=== PATIENT | female | born 1970 ===

== ENCOUNTER 2017-04-04 08:17 | Emergency (ER) | payer MEDICAID ==
[2017-04-04] MEDS ORDERED: Sodium Chloride 0.9% 1,000 ML IV ONE (09:06)
[2017-04-04 09:30] LABS: BASO % 0.6 % (0.0-2.0); EOS # 0.1 K/uL (0.0-0.7); LYMPH # 2.4 K/uL (1.0-4.3); LYMPH % 30.3 % (20.0-40.0); MEAN CELL VOLUME 95.8 fL (81.0-99.0); MEAN CORPUSCULAR HEMOGLOBIN 33.3 pg (27.0-31.0); MEAN CORPUSCULAR HGB CONC 34.8 g/dL (33.0-37.0); MEAN PLATELET VOLUME 7.3 fL (7.2-11.7); MONO # 0.5 K/uL (0.0-0.8); MONO % 6.4 % (0.0-10.0); NEUT # 4.8 K/uL (1.8-7.0); NEUT % 61.7 % (50.0-75.0); NRBC % 0.1 % (0.0-2.0); RBC 3.99 Mil/uL (3.80-5.20); RED CELL DISTRIBUTION WIDTH 13.4 % (11.5-14.5); WHITE BLOOD COUNT 7.8 K/uL (4.8-10.8)
[2017-04-04 09:33] LABS: HEMOGLOBIN 13.3 g/dL (11.0-16.0)
[2017-04-04 09:38] LABS: HCG,QUALITATIVE URINE NEGATIVE (NEGATIVE)
[2017-04-04 09:43] LABS: SQUAMOUS EPITHIAL 1 /hpf (0-5); URINE BILIRUBIN NEGATIVE (NEGATIVE); URINE BLOOD 1+ (NEGATIVE); URINE CLARITY Clear (Clear); URINE COLOR Yellow (YELLOW); URINE GLUCOSE (UA) NORMAL (Normal); URINE LEUKOCYTE ESTERASE NEG Leu/uL (Negative); URINE NITRATE NEGATIVE (NEGATIVE); URINE PROTEIN NEGATIVE (NEGATIVE); URINE UROBILINOGEN NORMAL mg/dL (0.2-1.0)
[2017-04-04 09:46] LABS: ALBUMIN 3.9 g/dL (3.5-5.0); ALT/SGPT 14 U/L (9-52); AST/SGOT 18 U/L (14-36); BLOOD UREA NITROGEN 15 mg/dL (7-17); CALCIUM 8.6 mg/dl (8.6-10.4); GFR AFRICAN-AMERICAN > 60; GFR NON-AFRICAN AMERICAN > 60
--- NOTE | 2017-04-04 09:55 | C.PDOC ---
History Of Present Illness 47-year-old female, presents to the emergency department with complaints of abdominal pain that started 1.5 days ago. Patient states she has been experiencing nausea and sometimes feels dizzy. Patient denies any other complaints at this time. Patient has history of ovarian cyst and thinks that she has another ovarian cyst Time Seen by Provider: 04/04/17 08:43 Chief Complaint (Nursing): Abdominal Pain History Per: Patient History/Exam Limitations: no limitations Onset/Duration Of Symptoms: Days Location Of Pain/Discomfort: Suprapubic Quality Of Discomfort: Aching, Cramping Alleviating Factors: None Recent travel outside of the [place]: No Abnormal Vaginal Bleeding: No Past Medical History Reviewed: Historical Data, Nursing Documentation, Vital Signs Vital Signs: Last Vital Signs Temp 98.4 F 04/04/17 14:17 Pulse 77 04/04/17 14:17 Resp 16 04/04/17 14:17 BP 110/64 04/04/17 14:17 Pulse Ox 98 04/04/17 14:17 - Medical History PMH: No Chronic Diseases Denies: Chronic Kidney Disease Other PMH: ovarian cyst Surgical History: No Surg Hx Family History: States: No Known Family Hx - Social History Hx Tobacco Use: No Hx Alcohol Use: No Hx Substance Use: No - Immunization History Hx Tetanus Toxoid Vaccination: No Hx Influenza Vaccination: No Hx Pneumococcal Vaccination: No Review Of Systems Constitutional: Negative for: Fever Respiratory: Negative for: Shortness of Breath Gastrointestinal: Positive for: Nausea, Abdominal Pain. Negative for: Vomiting Genitourinary: Negative for: Vaginal Bleeding Neurological: Positive for: Dizziness Physical Exam - Physical Exam Appears: Non-toxic, No Acute Distress Skin: Normal Color, Warm, Dry, No Rash Head: Normacephalic Throat: Normal Neck: Normal ROM Cardiovascular: Rhythm Regular, No Murmur Respiratory: Normal Breath Sounds, No Accessory Muscle Use Gastrointestinal/Abdominal: Soft, Tenderness (Ovarian cyst, suprapubic tenderness.) Extremity: Normal ROM, No Deformity, No Swelling Neurological/Psych: Oriented x3, Normal Speech ED Course And Treatment - Laboratory Results Result Diagrams: 04/04/17 09:23 04/04/17 09:23 Lab Interpretation: Normal Urine POC: Negative O2 Sat by Pulse Oximetry: 100 (RA) Pulse Ox Interpretation: Normal - CT Scan/US No standard instances Other Rad Studies (CT/US): Read By Radiologist, Radiology Report Reviewed CT/US Interpretation: FINDINGS: UTERUS: Measures 9.3 x 3.7 x 5.1 cm. Anteverted. Heterogeneous uterine echotexture limits evaluation for small masses or fibroids. 0.3 x 0.2 x 0.3 cm anechoic avascular focus, likely cyst within the mid left uterus. ENDOMETRIUM: Measures 6 mm in diameter. Tiny echogenic foci, possibly calculi. CERVIX: Nabothian cyst. RIGHT OVARY: Measures 2.9 x 1.7 x 2.0 cm. Blood flow is demonstrated. 1.5 cm probable corpus luteal cyst. LEFT OVARY: Measures 2.6 x 1.3 x 1.7 cm. Blood flow is demonstrated. Echogenic left ovarian foci, likely calculi. FREE FLUID: Small free fluid, bilateral adnexa. OTHER FINDINGS: None. IMPRESSION: Tiny echogenic foci noted within the endometrium and left ovary, likely calculi. Heterogeneous uterine echotexture. Probable 1.5 cm right ovarian corpus luteal cyst. Small free fluid, bilateral adnexa. Progress Note: Patient presents to ED with lower Pelvic Pain history of ovarian cyct. On re-evaluation abdomen soft, in no distress Reassessment Condition: Unchanged Disposition - Disposition Referrals: [facility] [Outside] [facility] [Outside] Disposition: HOME/ ROUTINE Disposition Time: 13:15 Condition: STABLE Prescriptions: Naproxen [Naprosyn] 1 tab PO BID PRN #25 tab PRN Reason: Pain Instructions: Ovarian Cysts Forms: [employer] (Tuvaluan) - POA Present On Arrival: None - Clinical Impression Clinical Impression: Ovarian cyst, Abdominal pain - Scribe Statement The provider has reviewed the documentation as recorded by the Scribe (Curt Foster) All medical record entries made by the Scribe were at my direction and personally dictated by me. I have reviewed the chart and agree that the record accurately reflects my personal performance of the history, physical exam, medical decision making, and the department course for this patient. I have also personally directed, reviewed, and agree with the discharge instructions and disposition.
--- NOTE | 2017-04-04 12:46 | US ---
HISTORY: pelvic pain COMPARISON: Transvaginal pelvic ultrasound performed 02/26/16 TECHNIQUE: Real-time transabdominal pelvic ultrasound was performed. In addition a transvaginal pelvic ultrasound was necessary to better depict pelvic anatomy. FINDINGS: UTERUS: Measures 9.3 x 3.7 x 5.1 cm. Anteverted. Heterogeneous uterine echotexture limits evaluation for small masses or fibroids. 0.3 x 0.2 x 0.3 cm anechoic avascular focus, likely cyst within the mid left uterus. ENDOMETRIUM: Measures 6 mm in diameter. Tiny echogenic foci, possibly calculi. CERVIX: Nabothian cyst. RIGHT OVARY: Measures 2.9 x 1.7 x 2.0 cm. Blood flow is demonstrated. 1.5 cm probable corpus luteal cyst. LEFT OVARY: Measures 2.6 x 1.3 x 1.7 cm. Blood flow is demonstrated. Echogenic left ovarian foci, likely calculi. FREE FLUID: Small free fluid, bilateral adnexa. OTHER FINDINGS: None. IMPRESSION: Tiny echogenic foci noted within the endometrium and left ovary, likely calculi. Heterogeneous uterine echotexture. Probable 1.5 cm right ovarian corpus luteal cyst. Small free fluid, bilateral adnexa.
[2017-04-04 14:17] VITALS: BP 110/64; PULSE 77; RESP 16; TEMP 98.4
[2017-04-04 15:37] VITALS: O2SAT 100
== END 2017-04-04 14:17 | disposition home or self-care (01) ==
LOC: C.ER 08:17
DX: N83.209 Unspecified ovarian cyst, unspecified side (principal); R10.2 Pelvic and perineal pain
CPT/HCPCS: 76830; 76856; 80053; 81001; 84703; 85025; 96361; 96374; 99285; J1885; J7040

== ENCOUNTER 2017-06-12 11:53 | Emergency (ER) | payer MEDICAID ==
[2017-06-12 12:20] VITALS: TEMP 98.4
[2017-06-12] MEDS ORDERED: Sodium Chloride 0.9% 1,000 ML IV ONE (12:34)
[2017-06-12] MEDS ORDERED: Sodium Chloride 0.9% 1,000 ML ONE (12:41)
[2017-06-12 12:57] LABS: BASO # 0.1 K/uL (0.0-0.2); BASO % 0.6 % (0.0-2.0); EOS # 0.1 K/uL (0.0-0.7); EOS % 1.3 % (0.0-4.0); HEMOGLOBIN 14.1 g/dL (11.0-16.0); LYMPH # 2.2 K/uL (1.0-4.3); LYMPH % 23.3 % (20.0-40.0); MEAN CELL VOLUME 95.5 fL (81.0-99.0); MEAN CORPUSCULAR HEMOGLOBIN 33.4 pg (27.0-31.0); MEAN PLATELET VOLUME 7.4 fL (7.2-11.7); MONO # 0.7 K/uL (0.0-0.8); MONO % 7.6 % (0.0-10.0); NEUT # 6.2 K/uL (1.8-7.0); NEUT % 67.2 % (50.0-75.0); RBC 4.2 Mil/uL (3.80-5.20); RED CELL DISTRIBUTION WIDTH 13.1 % (11.5-14.5); WHITE BLOOD COUNT 9.3 K/uL (4.8-10.8)
[2017-06-12 12:59] LABS: HCG,QUALITATIVE URINE NEGATIVE (NEGATIVE)
[2017-06-12 13:03] LABS: INR 1.1; PROTHROMBIN TIME 11.7 SECONDS (9.7-12.2)
[2017-06-12 13:04] LABS: SQUAMOUS EPITHIAL < 1 /hpf (0-5); URINE BILIRUBIN NEGATIVE (NEGATIVE); URINE CLARITY Clear (Clear); URINE COLOR Yellow (YELLOW); URINE GLUCOSE (UA) NORMAL (Normal); URINE LEUKOCYTE ESTERASE NEG Leu/uL (Negative); URINE PROTEIN NEGATIVE (NEGATIVE); URINE UROBILINOGEN NORMAL mg/dL (0.2-1.0)
[2017-06-12 13:07] LABS: ALB/GLOB RATIO 1.1 (1.0-2.1); ALBUMIN 4.4 g/dL (3.5-5.0); ALT/SGPT 13 U/L (9-52); AST/SGOT 19 U/L (14-36); BLOOD UREA NITROGEN 9 mg/dL (7-17); CALCIUM 9.2 mg/dl (8.6-10.4); GFR AFRICAN-AMERICAN > 60; GFR NON-AFRICAN AMERICAN > 60; LIPASE 46 U/L (23-300); URINE BLOOD TRACE (NEGATIVE)
--- NOTE | 2017-06-12 13:38 | C.PDOC ---
History Of Present Illness 47 y/o female presents to ED for evaluation of epigastric abdominal pain associated with nausea and x5 episodes of vomiting intermittently since 6 am this morning. Patient states she has been sick with cold like symptoms for weeks and has been taking Aleve. Patient admits to dizziness and denies chest pain, fever, sob, hematemesis, diarrhea or any other complaints at this time. Time Seen by Provider: 06/12/17 12:31 Chief Complaint (Nursing): Abdominal Pain History Per: Patient History/Exam Limitations: no limitations Onset/Duration Of Symptoms: Days Current Symptoms Are (Timing): Still Present Location Of Pain/Discomfort: Epigastric Past Medical History Reviewed: Historical Data, Nursing Documentation, Vital Signs Vital Signs: Last Vital Signs Temp 98.4 F 06/12/17 12:17 Pulse 64 06/12/17 14:06 Resp 18 06/12/17 14:06 BP 114/76 06/12/17 14:06 Pulse Ox 99 06/12/17 14:06 - Medical History PMH: No Chronic Diseases Surgical History: No Surg Hx Family History: States: No Known Family Hx - Social History Hx Tobacco Use: No Hx Alcohol Use: No Hx Substance Use: No - Immunization History Hx Tetanus Toxoid Vaccination: No Hx Influenza Vaccination: No Hx Pneumococcal Vaccination: No Review Of Systems Constitutional: Negative for: Fever, Chills Cardiovascular: Negative for: Chest Pain Respiratory: Negative for: Shortness of Breath Gastrointestinal: Positive for: Nausea, Vomiting, Abdominal Pain. Negative for : Diarrhea, Hematemesis Skin: Negative for: Rash Neurological: Positive for: Dizziness Physical Exam - Physical Exam Appears: Well, Non-toxic, No Acute Distress Skin: Normal Color, Warm, Dry Eye(s): bilateral: PERRL Nose: No Flaring, No Discharge Oral Mucosa: Moist, No Drooling Tongue: Normal Appearing Lips: Normal Appearing Throat: No Erythema, No Drooling Neck: Trachea Midline, Supple Cardiovascular: Rhythm Regular, No Murmur, No JVD, Other ((-) carotid bruits B/L ) Respiratory: No Decreased Breath Sounds, No Accessory Muscle Use, No Stridor, No Wheezing Gastrointestinal/Abdominal: Bowel Sounds (normal), Soft, Tenderness (mild epigastric), No Distention, No Guarding, No Rebound Back: No CVA Tenderness Extremity: Normal ROM, No Deformity, No Swelling Neurological/Psych: Oriented x3, Normal Speech ED Course And Treatment - Laboratory Results Result Diagrams: 06/12/17 12:51 06/12/17 12:51 Lab Interpretation: Normal Urine POC: Negative ECG: Interpreted By Me, Viewed By Me ECG Interpretation: Normal Interpretation Of ECG: SR@55/min, NAD, no acute T wave or ST-T changes O2 Sat by Pulse Oximetry: 98 (RA) Pulse Ox Interpretation: Normal Progress Note: On re-evaluation, pt is afebrile, hemodynamicaly stable. NOn- toxic. Tolerate Po well in ED. ENT: no acute findings. Lungs: CTA B/L, BS equal B/L. Abd: benign, (-) guarding, (-) rebound. back: (-) CVA tenderness. Blood work review and appears normal. EKG- normal study. Pt has clinical findings c/w epigastric pain, N/V. results review and discussed with pt. Advised. ref. to f/u with PMD in 2-3 days for re-eval. return to ED if any worsening or new changes. Disposition Counseled Patient/Family Regarding: Studies Performed, Diagnosis, Need For Followup, Rx Given - Disposition Referrals: [facility] [Outside] Disposition: HOME/ ROUTINE Disposition Time: 13:36 Condition: STABLE Additional Instructions: Encourage fluids Take medication as prescribed Follow up with PMD, GI in 2-3 days for re-evaluation. return to ED if any worsening or new changes. Prescriptions: Famotidine [Pepcid] 20 mg PO DAILY #20 tab Pantoprazole Sodium [Protonix] 40 mg PO DAILY #20 tablet. Instructions: Nausea and Vomiting, Adult (DC), Gastritis (DC) Forms: [employer] (Botswanan) Print Language: SLOVENIAN - Clinical Impression Clinical Impression: Nausea, Vomiting, Epigastric abdominal pain - PA / SITE PHYSICIAN / Resident Statement MD/DO has reviewed & agrees with the documentation as recorded. - Scribe Statement The provider has reviewed the documentation as recorded by the Nick Cagle All medical record entries made by the Alejandroibvlad were at my direction and personally dictated by me. I have reviewed the chart and agree that the record accurately reflects my personal performance of the history, physical exam, medical decision making, and the department course for this patient. I have also personally directed, reviewed, and agree with the discharge instructions and disposition.
[2017-06-12] MEDS ORDERED: Pantoprazole 40 mg EC Tab PO ONE (13:57)
[2017-06-12 14:07] VITALS: BP 114/76; PULSE 64; RESP 18
[2017-06-12 18:59] VITALS: O2SAT 98
--- NOTE | 2017-06-13 19:14 | CARD ---
APPROVED REPORT EKG Measurement Heart [id number] <Conclusion> Sinus bradycardia Otherwise normal ECG
== END 2017-06-12 14:07 | disposition home or self-care (01) ==
LOC: C.ER 11:53
DX: R10.13 Epigastric pain (principal); R11.2 Nausea with vomiting, unspecified
CPT/HCPCS: 80053; 81001; 83690; 84703; 85025; 85610; 85730; 93005; 96360; 99284; J7040

== ENCOUNTER 2017-07-27 07:42 | Emergency (ER) | payer MEDICAID ==
[2017-07-27 07:48] VITALS: RESP 16; TEMP 98.1
[2017-07-27] MEDS ORDERED: Naproxen 550 mg Tab PO STA (08:09)
--- NOTE | 2017-07-27 08:10 | C.PDOC ---
History Of Present Illness 47 y/o female presents to ED for evaluation of intermittent right elbow pain for over 1+ year. Pain is aggravated by certain movements such as pronation and supination. 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 Patient has been seen by PMD, had negative xray and pain is non relieved with Tylenol. Patient denies numbness, weakness, direct injury, tingling or any other complaints at this time Time Seen by Provider: 07/27/17 07:58 Chief Complaint (Nursing): Upper Extremity Problem/Injury History Per: Patient History/Exam Limitations: no limitations Onset/Duration Of Symptoms: Days Current Symptoms Are (Timing): Still Present Quality: "Pain" Past Medical History Reviewed: Historical Data, Nursing Documentation, Vital Signs Vital Signs: Last Vital Signs Temp 98.1 F 07/27/17 07:45 Pulse 78 07/27/17 08:29 Resp 16 07/27/17 08:29 BP 119/85 07/27/17 08:29 Pulse Ox 96 07/27/17 08:31 - Medical History PMH: Gastritis Surgical History: No Surg Hx Family History: States: No Known Family Hx - Social History Hx Tobacco Use: No Hx Alcohol Use: No Hx Substance Use: No - Immunization History Hx Tetanus Toxoid Vaccination: No Hx Influenza Vaccination: No Hx Pneumococcal Vaccination: No Review Of Systems Cardiovascular: Negative for: Chest Pain Respiratory: Negative for: Shortness of Breath Musculoskeletal: Positive for: Arm Pain. Negative for: Shoulder Pain, Hand Pain Skin: Negative for: Rash Neurological: Negative for: Weakness, Numbness Physical Exam - Physical Exam Appears: Non-toxic, No Acute Distress Skin: Warm, Dry, No Rash Head: Atraumatic, Normacephalic Eye(s): bilateral: Normal Inspection, EOMI Nose: Normal Oral Mucosa: Moist Neck: Normal ROM, Supple Chest: Symmetrical Respiratory: No Accessory Muscle Use Extremity: Normal ROM, Tenderness (bilateral epicondyle tenderness), Capillary Refill (<2 seconds), No Deformity, No Swelling Pulses: Left Radial: Normal, Right Radial: Normal Neurological/Psych: Oriented x3, Normal Motor, Normal Sensation ED Course And Treatment O2 Sat by Pulse Oximetry: 96 (RA) Pulse Ox Interpretation: Normal Progress Note: Naproxen administered. Miki wrap applied by cardiopulmonary technologist chief,. Instructed to follow up with ortho in 1-2 days. Disposition - Disposition Referrals: Gonzalo Foster MD [Staff Provider] - Disposition: HOME/ ROUTINE Disposition Time: 08:10 Condition: STABLE Additional Instructions: Rest and ice the area. Follow up with the bone doctor. Descanse y hiele la sania. Jese un seguimiento con el mdico de los huesos. Prescriptions: Naproxen [Naprosyn] 1 tab PO BID PRN #20 tab PRN Reason: Pain Instructions: Elbow Tendinopathy (Tennis and Golf Elbow) Forms: [employer] (Equatorial Guinean) Print Language: SWEDISH - Clinical Impression Clinical Impression: Elbow tendonitis - PA / CABLE DRILLER / Resident Statement MD/DO has reviewed & agrees with the documentation as recorded. - Scribe Statement The provider has reviewed the documentation as recorded by the Scribvlad Cagle All medical record entries made by the Scribe were at my direction and personally dictated by me. I have reviewed the chart and agree that the record accurately reflects my personal performance of the history, physical exam, medical decision making, and the department course for this patient. I have also personally directed, reviewed, and agree with the discharge instructions and disposition.
[2017-07-27] MEDS ORDERED: Naproxen 550 mg Tab PO ONE (08:23)
[2017-07-27 08:30] VITALS: BP 119/85; PULSE 78
[2017-07-27 08:31] VITALS: O2SAT 96
== END 2017-07-27 08:29 | disposition home or self-care (01) ==
LOC: C.ER 07:42
DX: M77.8 Other enthesopathies, not elsewhere classified (principal)

== ENCOUNTER 2017-08-14 10:02 | Emergency (ER) | payer MEDICAID ==
[2017-08-14 10:21] VITALS: BP 137/75; PULSE 72; RESP 20; TEMP 98; O2SAT 97
[2017-08-14] MEDS ORDERED: Naproxen 550 mg Tab PO STA (10:50)
--- NOTE | 2017-08-14 10:52 | C.PDOC ---
History Of Present Illness 47yo female, comes to ER with complaints of right elbow pain radiating distally into her forearm, for the past 2 years. Patient states the pain is worse with pronation and supination of her arm. She was seen in this ER on 07/27 and was instructed to follow up with an orthopedist; she reports she attempted to follow up but her insurance was not accepted by that practice. she has been taking naproxen with relief of pain. She denies any new injury, weakness, numbness, tingling, and offers no other complaints. Time Seen by Provider: 08/14/17 10:26 Chief Complaint (Nursing): Upper Extremity Problem/Injury History Per: Patient History/Exam Limitations: no limitations Onset/Duration Of Symptoms: Persistent Current Symptoms Are (Timing): Still Present Quality: "Pain" Additional History Per: Patient Past Medical History Reviewed: Historical Data, Nursing Documentation, Vital Signs Vital Signs: Last Vital Signs Temp 98 F 08/14/17 10:17 Pulse 72 08/14/17 10:17 Resp 20 08/14/17 10:17 BP 137/75 08/14/17 10:17 Pulse Ox 97 08/14/17 10:52 - Medical History PMH: No Chronic Diseases, Gastritis Denies: Chronic Kidney Disease Surgical History: No Surg Hx Family History: States: No Known Family Hx - Social History Hx Tobacco Use: No Hx Alcohol Use: No Hx Substance Use: No - Immunization History Hx Tetanus Toxoid Vaccination: No Hx Influenza Vaccination: No Hx Pneumococcal Vaccination: No Review Of Systems Cardiovascular: Negative for: Chest Pain Respiratory: Negative for: Shortness of Breath Musculoskeletal: Positive for: Arm Pain (right elbow radiating to right forearm) Neurological: Negative for: Weakness, Numbness Physical Exam - Physical Exam Appears: Non-toxic, No Acute Distress Skin: Warm, Dry, No Rash Head: Normacephalic Eye(s): bilateral: Normal Inspection Neck: Supple Chest: Symmetrical Cardiovascular: Rhythm Regular Respiratory: Normal Breath Sounds Extremity: Normal ROM (FROM right elbow, wrist, and digits on right hand.), Tenderness (mild tenderness to palpation of right elbow. no swelling, no erythema.), No Deformity, No Swelling Pulses: Left Radial: Normal, Right Radial: Normal Neurological/Psych: Oriented x3, Normal Motor, Normal Sensation ED Course And Treatment O2 Sat by Pulse Oximetry: 97 (RA) Pulse Ox Interpretation: Normal Progress Note: Patient given Naproxen for pain relief with improvement in ER. Patient informed to follow up with orthopedic clinic without fail. Disposition Counseled Patient/Family Regarding: Diagnosis, Need For Followup, Rx Given - Disposition Referrals: [facility] [place] [Outside] Disposition: HOME/ ROUTINE Disposition Time: 11:00 Condition: STABLE Additional Instructions: FOLLOW UP IN THE ORTHOPEDIC CLINIC WITHIN 1 WEEK USE MEDICATIONS NEEDED RETURN TO EMERGENCY ROOM IF SYMPTOMS WORSEN SEGUIMIENTO EN LA CLNICA ORTOPDICA DENTRO DE 1 SEMANA USE MEDICAMENTOS SEGN SEA NECESARIO REGRESE AL TREY DE EMERGENCIA SI LOS SNTOMAS EMPEORAN Prescriptions: Naproxen 375 mg PO BID PRN #20 tablet PRN Reason: pain Instructions: Elbow Tendinopathy (Tennis and Golf Elbow) Forms: [employer] (Japanese), Work Excuse Print Language: SERBIAN - POA Present On Arrival: None - Clinical Impression Clinical Impression: Tennis elbow - Scribe Statement The provider has reviewed the documentation as recorded by the Nick Nuñez Provider Attestation: All medical record entries made by the Alejandroibvlad were at my direction and personally dictated by me. I have reviewed the chart and agree that the record accurately reflects my personal performance of the history, physical exam, medical decision making, and the department course for this patient. I have also personally directed, reviewed, and agree with the discharge instructions and disposition.
[2017-08-14] MEDS ORDERED: Naproxen 550 mg Tab PO ONE (10:57)
== END 2017-08-14 10:57 | disposition home or self-care (01) ==
LOC: C.ER 10:02
DX: M77.11 Lateral epicondylitis, right elbow (principal)

== ENCOUNTER 2017-11-09 07:52 | Emergency (ER) | payer MEDICAID ==
[2017-11-09] MEDS ORDERED: Sodium Chloride 0.9% 1,000 ML IV STA (09:14)
[2017-11-09 09:38] LABS: BASO % 0.6 % (0.0-2.0); EOS # 0.1 K/uL (0.0-0.7); EOS % 1.3 % (0.0-4.0); HEMOGLOBIN 12.3 g/dL (11.0-16.0); LYMPH # 2.6 K/uL (1.0-4.3); LYMPH % 36.9 % (20.0-40.0); MEAN CELL VOLUME 93.1 fL (81.0-99.0); MEAN CORPUSCULAR HEMOGLOBIN 32.5 pg (27.0-31.0); MEAN CORPUSCULAR HGB CONC 34.9 g/dL (33.0-37.0); MEAN PLATELET VOLUME 7.4 fL (7.2-11.7); MONO # 0.5 K/uL (0.0-0.8); NEUT # 3.8 K/uL (1.8-7.0); NEUT % 54.2 % (50.0-75.0); NRBC % 0.1 % (0.0-2.0); RBC 3.78 Mil/uL (3.80-5.20); RED CELL DISTRIBUTION WIDTH 12.8 % (11.5-14.5); WHITE BLOOD COUNT 7.1 K/uL (4.8-10.8)
[2017-11-09 09:42] LABS: SQUAMOUS EPITHIAL 1 /hpf (0-5); URINE BILIRUBIN NEGATIVE (NEGATIVE); URINE BLOOD NEGATIVE (NEGATIVE); URINE CLARITY Clear (Clear); URINE COLOR Yellow (YELLOW); URINE GLUCOSE (UA) NORMAL (Normal); URINE LEUKOCYTE ESTERASE NEG Leu/uL (Negative); URINE PROTEIN NEGATIVE (NEGATIVE); URINE UROBILINOGEN NORMAL mg/dL (0.2-1.0)
[2017-11-09 09:54] LABS: ALB/GLOB RATIO 1.1 (1.0-2.1); ALBUMIN 3.9 g/dL (3.5-5.0); ALT/SGPT 18 U/L (9-52); AST/SGOT 13 U/L (14-36); BLOOD UREA NITROGEN 15 mg/dL (7-17); CALCIUM 9.3 mg/dl (8.6-10.4); GFR NON-AFRICAN AMERICAN > 60
--- NOTE | 2017-11-09 10:50 | RAD ---
Date of service: 11/09/2017 HISTORY: bodyaches COMPARISON: No prior. TECHNIQUE: Chest PA and lateral FINDINGS: LUNGS: No active pulmonary disease. PLEURA: No significant pleural effusion identified. No pneumothorax apparent. CARDIOVASCULAR: Normal. OSSEOUS STRUCTURES: No significant abnormalities. VISUALIZED UPPER ABDOMEN: Normal. OTHER FINDINGS: None. IMPRESSION: No acute cardiopulmonary disease appreciated.
[2017-11-09 11:34] VITALS: O2SAT 100
--- NOTE | 2017-11-09 12:21 | C.PDOC ---
History Of Present Illness 47 y/o female presents to ED for evaluation of generalized body pain, headache, and lightheadedness. Pt also states she experiences hand stiffness and swelling in the morning time. Otherwise, denies change in sensation, weakness, numbness, dizziness, chest pain, shortness of breath, or fever. Chief Complaint (Nursing): Flu-like Symptoms History Per: Patient History/Exam Limitations: no limitations Onset/Duration Of Symptoms: Days Current Symptoms Are (Timing): Still Present Recent travel outside of the [place]: No Additional History Per: Patient Past Medical History Reviewed: Historical Data, Nursing Documentation, Vital Signs Vital Signs: Last Vital Signs Temp 98.7 F 11/09/17 11:33 Pulse 64 11/09/17 11:33 Resp 14 11/09/17 11:33 BP 99/65 L 11/09/17 11:33 Pulse Ox 100 11/09/17 11:33 - Medical History PMH: Gastritis Denies: Chronic Kidney Disease Family History: States: Unknown Family Hx - Social History Hx Tobacco Use: No Hx Alcohol Use: No Hx Substance Use: No - Immunization History Hx Tetanus Toxoid Vaccination: Yes Hx Influenza Vaccination: No Hx Pneumococcal Vaccination: Yes Review Of Systems Except As Marked, All Systems Reviewed And Found Negative. Constitutional: Positive for: Other (bodyaches). Negative for: Fever, Chills Cardiovascular: Positive for: Light Headedness. Negative for: Chest Pain Respiratory: Negative for: Shortness of Breath Gastrointestinal: Negative for: Nausea, Vomiting, Abdominal Pain Musculoskeletal: Positive for: Hand Pain (hand stiffness and swelling) Neurological: Positive for: Headache. Negative for: Weakness, Numbness, Dizziness Physical Exam - Physical Exam Appears: Non-toxic, No Acute Distress Skin: Normal Color, Warm, Dry Head: Atraumatic, Normacephalic Eye(s): bilateral: Normal Inspection Oral Mucosa: Moist Neck: Normal ROM, Supple Chest: Symmetrical Cardiovascular: Rhythm Regular, No Murmur Respiratory: Normal Breath Sounds, No Rales, No Rhonchi, No Wheezing Gastrointestinal/Abdominal: Soft, No Tenderness Back: No CVA Tenderness Extremity: Normal ROM (FROM of bilateral hands), No Tenderness, No Pedal Edema, Capillary Refill (less than 2 seconds), No Deformity, No Swelling Extremity: Bilateral: Atraumatic, Normal Color And Temperature Pulses: Left Radial: Normal, Right Radial: Normal Neurological/Psych: Oriented x3, Normal Speech, Normal Motor, Normal Sensation, No Other (no focal deficits) ED Course And Treatment - Laboratory Results Result Diagrams: 11/09/17 09:34 11/09/17 09:34 O2 Sat by Pulse Oximetry: 100 (RA) Pulse Ox Interpretation: Normal - Other Rad CXR X-Ray: Viewed By Me, Read By Radiologist Interpretation: Date of service: 11/09/2017. HISTORY: bodyaches. COMPARISON: No prior. TECHNIQUE: Chest PA and lateral. FINDINGS: LUNGS: No active pulmonary disease. PLEURA: No significant pleural effusion identified. No pneumothorax apparent. CARDIOVASCULAR: Normal. OSSEOUS STRUCTURES: No significant abnormalities. VISUALIZED UPPER ABDOMEN: Normal. OTHER FINDINGS: None. IMPRESSION: No acute cardiopulmonary disease appreciated. Medical Decision Making Medical Decision Making: Plan: Blood work Urinalysis CXR Toradol IV fluids Blood work results show elevated ESR and CRP. Patient is being discharged home with Rx and is instructed to follow up with PMD in 1-2 days to obtain rheumatology referral. Disposition - Disposition Disposition: HOME/ ROUTINE Disposition Time: 12:19 Condition: STABLE Additional Instructions: Follow up with your PMD and get a referral for Rheumathology consult. Return to ED if feel worse. Prescriptions: Naproxen [Naprosyn] 1 tab PO BID PRN #25 tab PRN Reason: Pain Instructions: Muscle and Bone Pain (DC) Forms: [employer] (Amharic) Print Language: RUSSIAN - Clinical Impression Clinical Impression: Myalgia - PA / BLUEPRINT TRIMMER / Resident Statement MD/DO has reviewed & agrees with the documentation as recorded. - Scribe Statement The provider has reviewed the documentation as recorded by the Scribe KP All medical record entries made by the Scribe were at my direction and personally dictated by me. I have reviewed the chart and agree that the record accurately reflects my personal performance of the history, physical exam, medical decision making, and the department course for this patient. I have also personally directed, reviewed, and agree with the discharge instructions and disposition.
[2017-11-09 12:43] VITALS: BP 110/72; PULSE 65; RESP 18; TEMP 98
== END 2017-11-09 12:51 | disposition home or self-care (01) ==
LOC: C.ER 07:52
DX: M79.10 Myalgia, unspecified site (principal)
CPT/HCPCS: 71046; 80053; 81001; 82550; 83735; 85025; 85651; 86140; 96361; 96374; 99285; J1885; J7030